=== PATIENT | female | born 1985 | race American Indian/Alaskan Native ===

== ENCOUNTER 2020-05-08 17:19 | Emergency (ER) | payer OTHER ==
[2020-05-08] MEDS ORDERED: ACETAMINOPHEN 500 MG TAB ONE (20:25)
[2020-05-08] MEDS ORDERED: ACETAMINOPHEN 500 MG TAB PO ONE (20:30)
[2020-05-08] MEDS ORDERED: METOPROLOL TARTRATE 50 MG TAB PO ONE (21:10)
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
[2020-05-08 21:55] VITALS: BP 179/107
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
== END 2020-05-08 22:25 | disposition home or self-care (01) ==
LOC: ED 17:19
DX: M54.12 Radiculopathy, cervical region (principal); I10 Essential (primary) hypertension; Z79.899 Other long term (current) drug therapy; V89.2XXA Person injured in unspecified motor-vehicle accident, traffic, initial encounter; Y93.89 Activity, other specified; Y92.89 Other specified places as the place of occurrence of the external cause; Y99.8 Other external cause status
CPT/HCPCS: 70450; 72125